=== PATIENT | female | born 1980 | race Two or more races ===

== ENCOUNTER 2018-05-31 15:53 | Emergency (ER) | payer BC ==
[~2018-05-31] VITALS: Ht 170.2 cm; Wt 86.2 kg
--- NOTE | 2018-05-31 16:02 | NUR ---
in room 3
[2018-05-31 18:14] VITALS: BP 142/51
--- NOTE | 2018-05-31 18:15 | NUR ---
splint applied to left arm. exit care instructions, cd of xray and prescriptions given to patient. discharged thereafter
== END 2018-05-31 18:19 | disposition home or self-care (01) ==
LOC: ER 15:55
DX: S51.002A Unspecified open wound of left elbow, initial encounter (principal); X58.XXXA Exposure to other specified factors, initial encounter; Y93.89 Activity, other specified; Y92.810 Car as the place of occurrence of the external cause; Y99.8 Other external cause status
CPT/HCPCS: 73080; A4663